=== PATIENT | female | born 1990 | race Caucasian/White ===

== ENCOUNTER 2019-03-11 21:12 | Emergency (ER) | payer BC ==
[2019-03-11 21:36] VITALS: BP 118/76
--- NOTE | 2019-03-11 23:31 | ER Document Report ---
ED Medical Screen (RME) - General Chief Complaint: Abdominal Pain Stated Complaint: RIGHT LOWER QUADRANT PAIN Time Seen by Provider: 03/11/19 23:29 Mode of Arrival: Ambulatory Information source: Patient Notes: 28-year-old female presented to ED for complaint of abdominal pain x4 days with nausea and vomiting. She states she had one diarrhea stool today. States her last menstrual period was about a week ago. She states she has not had any fever but she has had headache and dizziness. She states she has a history of anxiety depression PTSD endometriosis anemia interstitial cystitis multiple laparoscopies ovarian cyst removal bladder surgery appendectomy cholecystectomy jaw surgery and bilateral tubal ligation. She states she smokes 5 cigarettes a day and rarely drinks and lives with her significant other and children. When I informed her that she would need to wait for her room and that she will have labs and ultrasound done at that time, she stated that she was just go to go home and follow-up with her [employer] next week because she thinks is just an ovarian cyst. I explained to her that I could not discharge her at this time because she needs a exam and testing done and she states she was going to go home I did explain to her that she could have worsening in her condition and she said she was going home. She did not want to sign anything she was just going home to her kids she was going to be manageable she would rather be measurable at home. TRAVEL OUTSIDE OF THE [place] IN LAST 30 DAYS: No Physical Exam - Vital signs Vitals: Temp Pulse Resp BP Pulse Ox 97.9 F 75 16 118/76 97 03/11/19 21:35 03/11/19 21:35 03/11/19 21:35 03/11/19 21:35 03/11/19 21:35 Course - Vital Signs Vital signs: Temp Pulse Resp BP Pulse Ox 97.9 F 75 16 118/76 97 03/11/19 21:35 03/11/19 21:35 03/11/19 21:35 03/11/19 21:35 03/11/19 21:35 Doctor's Discharge - Discharge Clinical Impression: Abdominal pain Qualifiers: Abdominal location: right lower quadrant Qualified Code(s): R10.31 - Right lower quadrant pain Disposition: AGAINST MEDICAL ADVICE
== END 2019-03-11 23:35 | disposition left against medical advice (07) ==
LOC: ER 21:12
DX: R10.31 Right lower quadrant pain (principal); R11.2 Nausea with vomiting, unspecified; R51 Headache; R42 Dizziness and giddiness; F17.210 Nicotine dependence, cigarettes, uncomplicated